=== PATIENT | female | born 1960 | race Caucasian/White ===

== ENCOUNTER 2019-03-27 06:50 | Day surgery (SDC) | payer MEDICAID ==
[2019-03-27] MEDS ORDERED: Propofol 200 MG/20 ML SDV ONE (07:01)
[2019-03-27] MEDS ORDERED: fentaNYL 100 MCG/2 ML SDV ONE (07:01)
[2019-03-27] MEDS ORDERED: Midazolam 1 MG/ML 2 ML SDV ONE (07:01)
[2019-03-27] MEDS ORDERED: Lactated Ringers 1,000 ML IV SCH (08:00)
[2019-03-27 10:06] VITALS: BP 115/87; PULSE 80
--- NOTE | 2019-03-27 15:32 | OR ---
DATE OF PROCEDURE: 03/27/2019 SURGEON: Bharat Segundo MD PREOPERATIVE DIAGNOSIS: History of colon polyps. POSTOPERATIVE DIAGNOSES: Diverticulosis, medium sized transverse colon polyp, history of colon polyps. PROCEDURE: Colonoscopy to the cecum with biopsy and then snare cautery polypectomy of transverse colon polyp. ANESTHESIA: IV anesthesia with monitored anesthesia care. INDICATION: This 59-year-old white female is referred for a colonoscopy. Her last colonoscopic exam was done 3 years ago. Four years ago, she had precancerous polyps removed. I counseled her for the procedure, including risks and alternatives, and she gave her informed consent to proceed. DESCRIPTION OF PROCEDURE: The patient was placed in the left lateral decubitus position. IV anesthesia was administered by the Anesthesia Service. Time-out was held. A rectal exam was performed, which was unremarkable. The flexible video Olympus colonoscope was introduced through her anus, up her rectum, and out her colon all the way to the cecum. En route, we saw a few scattered left-sided diverticula. There was no bleeding or inflammation associated with any of them. Also, en route to the cecum, in the transverse colon, we saw a polyp. This was initially biopsied. It was too large to remove using this technique. A snare was passed about its base. It was elevated up away from the bowel wall and amputated as electrocautery was applied. The polyp was aspirated up through the scope and captured in a polyp trap. Once the cecum was reached, the scope was slowly withdrawn, examining the mucosa throughout. No additional mucosal abnormalities were noted. The scope was retroflexed in the rectum with the distal rectum appearing unremarkable. The scope was straightened and removed. She tolerated the procedure well. Bharat Segundo MD /[id number]
== END 2019-03-27 10:30 | disposition home or self-care (01) ==
LOC: JP.SDS 06:50
PROVIDERS: ATTEND Surgery
DX: Z12.11 Encounter for screening for malignant neoplasm of colon (principal); D12.3 Benign neoplasm of transverse colon; K57.30 Diverticulosis of large intestine without perforation or abscess without bleeding; I10 Essential (primary) hypertension; Z86.010 Personal history of colon polyps
CPT/HCPCS: 45385; J2250; J2704; J3010; J7120; 88305; 88341; 88342

== ENCOUNTER 2020-06-30 06:48 | Day surgery (SDC) | payer MEDICAID ==
[2020-06-30] MEDS ORDERED: Dextrose 5%-Lactated Ringers 1,000 ML IV SCH (07:15)
[2020-06-30] MEDS ORDERED: Propofol 200 MG/20 ML SDV ONE (08:23)
[2020-06-30] MEDS ORDERED: Midazolam 1 MG/ML 2 ML SDV ONE (08:23)
[2020-06-30] MEDS ORDERED: fentaNYL 100 MCG/2 ML SDV ONE (08:23)
[2020-06-30 10:53] VITALS: BP 112/64; PULSE 79
--- NOTE | 2020-07-06 15:57 | OR ---
DATE OF PROCEDURE: 06/30/2020 SURGEON: Wayne Nguyen MD PREOPERATIVE DIAGNOSIS: History of colon polyps. POSTOPERATIVE DIAGNOSES: 1. No recurrent colon polyps. 2. Uncomplicated left colonic diverticulosis. OPERATIVE PROCEDURE: Flexible colonoscopy. ANESTHESIA: IV sedation. INDICATIONS FOR PROCEDURE: A 60-year-old presenting for followup screening colonoscopy. The patient does have history of colon polyps. Plan is to proceed with a colonoscopy with biopsies and/or polypectomy as indicated. Potential risks including bleeding and perforation were discussed, and the patient wishes to proceed. DETAILS OF PROCEDURE: The patient was taken to the operating room and placed in a left lateral decubitus position. IV sedation was administered, after which the initial digital rectal exam was performed and it was unremarkable. Colonoscope was then passed into the rectum with retroflexion revealing uncomplicated hemorrhoidal columns. The scope was then passed to the level of the cecum. The prep was good with only a small amount of liquid stool present to that level. No recurrent polyps were seen. There were some uncomplicated left colonic diverticulosis and no areas of colitis were identified. The scope was then withdrawn, the above findings reconfirmed, and the procedure concluded. The patient was taken to the recovery room in satisfactory condition. Recommendation will be given the history of colon polyps, to repeat the colonoscopy in 5 years. Wayne Nguyen MD /[id number]
== END 2020-06-30 11:06 | disposition home or self-care (01) ==
LOC: JP.SDS 06:48
PROVIDERS: ATTEND Surgery
DX: Z12.11 Encounter for screening for malignant neoplasm of colon (principal); K57.30 Diverticulosis of large intestine without perforation or abscess without bleeding; K64.9 Unspecified hemorrhoids; I10 Essential (primary) hypertension; E11.9 Type 2 diabetes mellitus without complications; E66.9 Obesity, unspecified; Z86.010 Personal history of colon polyps; Z68.31 Body mass index [BMI] 31.0-31.9, adult
CPT/HCPCS: 45378; J2250; J2704; J3010; J7121